=== PATIENT | female | born 1970 | race Two or more races ===

== ENCOUNTER 2017-09-03 14:47 | Emergency (ER) | payer OTHER ==
[~2017-09-03] VITALS: Ht 162.6 cm; Wt 68.0 kg
[~2017-09-03 14:47] MED LIST: CIPRO500 MG PO; EDARBI40 MG PO
== END 2017-09-03 18:57 | disposition home or self-care (01) ==
LOC: ER 14:47
DX: S30.1XXA Contusion of abdominal wall, initial encounter (principal); W50.0XXA Accidental hit or strike by another person, initial encounter; Y93.66 Activity, soccer; Y92.322 Soccer field as the place of occurrence of the external cause; Y99.8 Other external cause status

== ENCOUNTER → 2018-09-05 | Emergency (ER) | payer OTHER ==
[~2018-09-05] VITALS: Ht 162.6 cm; Wt 65.3 kg
== END | disposition left against medical advice (07) ==
LOC: ER 03:34
DX: Z53.20 Procedure and treatment not carried out because of patient's decision for unspecified reasons (principal)

== ENCOUNTER 2018-09-25 22:44 | Emergency (ER) | payer OTHER ==
[~2018-09-25] VITALS: Ht 162.6 cm; Wt 64.4 kg
[2018-09-25] MEDS ORDERED: COZAAR25 MG (23:28)
[2018-09-26] MEDS ORDERED: PEPCID40 MG PO (04:04)
[2018-09-26] MEDS ORDERED: PROTONIX40 MG PO (04:04)
[2018-09-26] MEDS ORDERED: CARAFATE1 GM/10 ML PO (04:08)
== END 2018-09-26 04:11 | disposition home or self-care (01) ==
LOC: ER 22:44
DX: K21.9 Gastro-esophageal reflux disease without esophagitis (principal)

== ENCOUNTER 2021-05-11 02:16 | Emergency (ER) | payer OTHER ==
[~2021-05-11] VITALS: Ht 165.1 cm; Wt 79.4 kg
[~2021-05-11 02:16] MED LIST changes: +CARAFATE1 GM/10 ML PO; +COZAAR25 MG; +PEPCID40 MG PO; +PROTONIX40 MG PO
[2021-05-11] MEDS ORDERED: PRILOSEC OTC20 MG (02:28)
[2021-05-11] MEDS ORDERED: CLONAZEPAM0.5 MG (02:28)
== END 2021-05-11 10:18 | disposition home or self-care (01) ==
LOC: ER 02:16
DX: I49.1 Atrial premature depolarization (principal); F41.8 Other specified anxiety disorders; E78.5 Hyperlipidemia, unspecified; I10 Essential (primary) hypertension